=== PATIENT | male | born 1970 | race Caucasian/White ===

== ENCOUNTER 2017-04-30 11:47 | Emergency (ER) | payer MEDICAID ==
[~2017-04-30] VITALS: Ht 182.9 cm; Wt 68.2 kg
[2017-04-30 11:55] VITALS: Ht 182.9 cm; Wt 68.2 kg
[2017-04-30] MEDS ORDERED: ALPRAZOLAM 0.25 MG TAB PO ONE (12:30)
[2017-04-30] MEDS: KETOROLAC 60 MG INJ IM STA ×2 (12:31→12:35)
--- NOTE | 2017-04-30 12:58 | ERD ---
ER Documentation Chief Complaint Chief Complaint Rectal bleeding/abd pain x am has happened in the past hx prolapse rectum HPI This 47-year-old male presents for pain and prolapse. Been to him before. He had a colonoscopy at all the recently. Then he saw a surgeon for his rectal prolapse and is currently doing the paperwork in order to get the problem possibly surgically fixed. Does not have any specific abdominal pains is mostly just the rectal pain. Also feels very anxious when this happens. ROS All systems reviewed and are negative except as per history of present illness. Allergies Allergies: Coded Allergies: morphine (Verified Allergy, Intermediate, altered, agitation, 04/30/17) PMhx/Soc History of Surgery: Yes (umbilical hernia and inguinal hernia repair) Anesthesia Reaction: No Hx Neurological Disorder: No Hx Respiratory Disorders: No Hx Cardiac Disorders: No Hx Psychiatric Problems: No Hx Miscellaneous Medical Probl: Yes (portal vein thrombosis, IBS, Crohn's d/s, broken collar bone) Hx Alcohol Use: No Hx Substance Use: Yes (marijuana) Hx Tobacco Use: No Smoking Status: Never smoker Physical Exam Vitals Vital Signs Date Time Temp Pulse Resp B/P Pulse Ox O2 Delivery O2 Flow Rate FiO2 04/30/17 11:55 97.8 70 20 124/78 100 Physical Exam Const: [] Distress, appears very uncomfortable Head: Atraumatic Eyes: Normal Conjunctiva ENT: Normal External Ears, Nose and Mouth. Neck: Full range of motion..~ No meningismus. Resp: Clear to auscultation bilaterally Cardio: Regular rate and rhythm, no murmurs Abd: Soft, non tender, non distended. Normal bowel sounds. Rectum with no visible external hemorrhoids, no prolapse. Skin: No petechiae or rashes Psych: Normal Mood and Affect Results 24 hrs Current Medications Medications (Trade) Dose Ordered Sig/Rose Route PRN Reason Start Time Stop Time Status Last Admin Dose Admin Ketorolac Tromethamine (Toradol) 60 mg ONCE STAT IM 04/30/17 12:20 04/30/17 12:22 DC Alprazolam (Xanax) 0.5 mg ONCE ONCE PO 04/30/17 12:30 04/30/17 12:31 DC 04/30/17 12:31 Lidocaine (Lmx 4% Plus) 1 applic ONCE ONCE TOP 04/30/17 13:00 04/30/17 13:01 Procedures/MDM Recurrent rectal prolapse currently resolved in the emergency room. Patient already is under ongoing surgical follow-up for the problem at [facility]. He was given a 0.5 mg Xanax as well as 30 mg of IV Toradol. Patient says that while we were prepping by opening the sugar pexing and obtaining lidocaine jelly he pushed it back in himself. When I saw his rectum with a dye boarding machine operator present there were no rectal abnormalities. Patient also said he felt much better already. He expressed gratitude. Going to discharge him with pain medication and continued follow-up with his all of your surgeon. Departure Diagnosis: Primary Impression: Rectal prolapse Additional Impression: Rectal pain Condition: Stable LAURA MARSH DO Apr 30, 2017 12:58
[2017-04-30] MEDS ORDERED: LIDOCAINE 4% CR TOP ONE (13:00)
[2017-04-30] MEDS ORDERED: NAPR-688 PO (13:03)
[2017-04-30] MEDS ORDERED: HYDR-906 PO (13:03)
== END 2017-04-30 13:46 | disposition home or self-care (01) ==
LOC: E/R 11:47
DX: K62.3 Rectal prolapse (principal)
CPT/HCPCS: J1885; Z7502; Z7610; 99284